=== PATIENT | female | born 1975 | race Caucasian/White ===

== ENCOUNTER → 2017-03-23 | Outpatient (CLI) | payer BC ==
[~2017-03-23] MED LIST: CATHETER FLUSH 10 ML SYR IV PRN; FUROSEMIDE 40 MG/4 ML INJ (LASIX) IVP ONE; FUROSEMIDE 40 MG/4 ML INJ (LASIX) ONE
--- NOTE | 2017-03-23 15:58 | Diagnostic Imaging Report ---
EXAMINATION: Renal scan with Lasix Indication: Assess renal function, hydronephrosis TECHNIQUE: After the intravenous administration of 5.5 mCi of Tc 99m MAG3, imaging over the abdomen and pelvis was obtained. Multiple phases include the flow images, renal the junction with the split function measurements obtained. This was followed by administration of Lasix 40 mg is administered intravenously, with post-Lasix the images are performed. The area of interest for measurements of radiotracer uptake over the renal collecting system with the assessment of a excretion performed. FINDINGS: There is symmetric flow with the kidneys. The split renal function is the percent on the right is 46 % and is 54 % on the left. There is significant emptying into the bladder from both kidneys and the ureters are visible with no accumulation in the renal collecting system on either side. After administration of Lasix, there is further excretion with no evidence of obstruction. Impression: No significant abnormality. Dictated by: Dictated on workstation # [id number]
== END ==
LOC: CARD 12:13
PROVIDERS: ATTEND Urology
DX: N13.5 Crossing vessel and stricture of ureter without hydronephrosis (principal)
CPT/HCPCS: 78708